=== PATIENT | female | born 1950 | race Caucasian/White ===

== ENCOUNTER 2022-03-25 13:36 | Outpatient (RCR) | payer MEDICARE, SELFPAY | END 2022-06-29 14:13 | disposition home or self-care (01) | LOC: HO.WCC 13:36 | PROVIDERS: PCP Nurse Practitioner Adult Health; Referring Provider Nurse Practitioner Adult Health; Visit Provider Surgery | DX: S31.100D Unspecified open wound of abdominal wall, right upper quadrant without penetration into peritoneal cavity, subsequent encounter (principal); C79.2 Secondary malignant neoplasm of skin; L20.9 Atopic dermatitis, unspecified; G62.9 Polyneuropathy, unspecified; Z85.42 Personal history of malignant neoplasm of other parts of uterus | CPT/HCPCS: 99212; 99213 ==